=== PATIENT | male | born 1960 | race Two or more races ===

== ENCOUNTER 2024-05-13 19:57 | Emergency (ER) | payer MEDICAID ==
[~2024-05-13] VITALS: Ht 180.3 cm; Wt 82.4 kg
[2024-05-13 20:01] VITALS: BP 135/80; TEMP 36.7; O2SAT 99
[2024-05-13 20:06] VITALS: PULSE 97; RESP 16; O2SAT 99
[2024-05-13] MEDS ORDERED: SODIUM CHLORIDE 0.9% 1,000 ML IV ONE (23:00)
== END 2024-05-14 01:30 | disposition left against medical advice (07) ==
LOC: ER 19:57
DX: S09.8XXA Other specified injuries of head, initial encounter (principal); R55 Syncope and collapse; W01.198A Fall on same level from slipping, tripping and stumbling with subsequent striking against other object, initial encounter; Y93.89 Activity, other specified; Y92.89 Other specified places as the place of occurrence of the external cause; Y99.8 Other external cause status
CPT/HCPCS: 99284; 70450; 71045; 93005; J7030